=== PATIENT | female | born 1975 | race Two or more races ===

== ENCOUNTER 2023-05-16 11:50 | Emergency (ER) | payer BC ==
[~2023-05-16] VITALS: Ht 167.6 cm; Wt 54.4 kg
[2023-05-16 11:50] VITALS: BP 113/76; PULSE 83; RESP 18; TEMP 99; O2SAT 97
--- NOTE | 2023-05-16 11:50 | NUR ---
ARRIVAL PATIENT ARRIVED TO ED4 VIA GURNEY BY [facility], C/O SHORTNESS OF BREATH,WEAKNESS,DECREASED APPETITE AND NO SLEEPING FOR THE PAST 2 DAYS, PATIENT IS TRAVELING HOME TO [place] FROM [place] AFTER VISITING , HAS NOT SLEPT IN 2 DAYS, CALLED EMS NEAR [facility] FOR EVAL, EMS INITIATED A 20G TO THE RIGHT AC AND STARTED LACTATED RINGERS AT A WIDE OPEN RATE, BROUGHT TO THE ED FOR EVAL, ASSISTED TO ED NIESHA, VITAL SIGNS TAKEN AND DOCTOR NOTIFIED OF PATIENT'S ARRIVAL.
--- NOTE | 2023-05-16 12:25 | NUR ---
ORAL INTAKE JELLO AND APPLESAUCE PROVIDED TO PATIENT, TOLERATING WELL AT THIS TIME.
--- NOTE | 2023-05-16 12:26 | ER.PDOC ---
General Chief Complaint: Requesting Medical Care Stated Complaint: Weakness TRAVEL OUT OF US: No Time seen by MD: 12:08 Source: patient, family Exam Limitations: no limitations History of Present Illness Initial Comments 48 yo F denies particular medical problems or medical history other than smoking, anxiety/depression, and prior Caesarian section. Has has insomnia and weakness for the past 2-3 days, also poor po intake, while [place] with her three children ranging from adolescent to pre-K to visit her working in [place] (they live in [place]) and began this morning to have some bilateral leg and hand weakness - denying chest pain or hyperventilation/dyspnea at the time - which has since resolved. Stopped vehicle, called for EMS, comes in VSS with no obvious deficits. Timing/Duration: other (unclear) Severity: mild, moderate Associated Symptoms: malaise, weakness Allergies: Coded Allergies: No Known Allergies (Unverified , 05/16/23) Past Medical History Medical History: other (anxiety/depression) Family History Significant Family History: no pertinent family hx Social History Smoking: cigarettes Alcohol Use: rarely Drug Use: none Reviewed Nursing Reviewed: Vital Signs, Abn. Noted, Nursing Assessment Review of Systems Constitutional: malaise, weakness EENTM: no symptoms reported Respiratory: no symptoms reported; denies shortness of breath Cardiovascular: denies chest pain, denies palpitations, denies syncope Gastrointestinal: denies abdominal pain, denies diarrhea, denies nausea, denies vomiting; other (decreased appetite) Genitourinary: no symptoms reported Musculoskeletal: no symptoms reported Skin: no symptoms reported Psychiatric/Neurological: anxiety, depressed, tingling (or others) All Other Systems: Reviewed and Negative Physical Exam General Appearance: No Apparent Distress, Thin EENT: eyes nml inspection Neck: Supple Respiratory: normal breath sounds CVS: reg rate & rhythm Gastrointestinal: Normal Bowel Sounds, Non Tender Extremities: Normal Range of Motion, Non-Tender Neurologic/Psychiatric: No Motor/Sensory Deficits, Alert, Normal Mood/Affect, Oriented x 3 Skin: Normal Color Results/Orders Results/Orders Orders - KALEIGH LY MD Cbc With Auto Diff (05/16/23 12:08) Comprehensive Metabolic Panel (05/16/23 12:08) Urinalysis (05/16/23 12:08) PT (05/16/23 12:39) Partial Thromboplastin Time. (05/16/23 12:39) D-Dimer (05/16/23 12:39) Hcg Qualitative Serum (05/16/23 12:59) Urine Culture (05/16/23 12:45) Potassium Chloride (Klor-Con 10) (05/16/23 13:30) Sulfamethoxazole/Trimethoprim (Bactrim D (05/16/23 13:09) 0.9 % Sodium Chloride (Ns 1000ml) (05/16/23 13:10) Potassium Chloride (Klor-Con 10) (05/16/23 13:13) Sulfamethoxazole/Trimethoprim (Bactrim D (05/16/23 13:13) Vital Signs Date Time Temp Pulse Resp B/P (MAP) Pulse Ox O2 Delivery O2 Flow Rate FiO2 05/16/23 12:49 99.0 77 18 119/75 (90) 97 Room Air* 0 21 05/16/23 11:50 99.0 83 18 97 05/16/23 11:50 99.0 83 18 113/76 (88) 97 Room Air* 0 21 05/16/23 11:50 99.0 83 18 Laboratory Tests Test 05/16/23 12:19 05/16/23 12:45 White Blood Count 5.8 10^3/uL (4.5-11.0) Red Blood Count 4.50 10^6/uL (4.00-5.20) Hemoglobin 13.0 g/dL (12.0-15.0) Hematocrit 39.9 % (36.0-46.0) Mean Corpuscular Volume 88.7 fL (78-100) Mean Corpuscular Hemoglobin 28.9 pg (26-34) Mean Corpuscular Hemoglobin Concent 32.6 g/dL (33-36.5) L Red Cell Distribution Width 12.9 % (11.5-14.5) Platelet Count 248 10^3/uL (150-400) Mean Platelet Volume 10.0 fL (7.8-11.0) Neutrophils (%) (Auto) 68.9 % (41.0-85.0) Lymphocytes (%) (Auto) 22.8 % (24.0-44.0) L Monocytes (%) (Auto) 7.2 % (5.0-12.0) Neutrophils # (Auto) 4.0 10^3/uL (1.8-7.7) Lymphocytes # (Auto) 1.33 10^3/uL1 (1.0-4.8) Monocytes # (Auto) 0.4 10^3/uL (0.3-0.8) Absolute Immature Granulocyte (auto 0.01 10^3 u/L (0-2) Absolute Eosinophils (auto) 0.0 10^3/uL (0.0-0.2) Immature Granulocytes % 0.20 % (0.00-0.50) Eosinophils % 0.2 % (0.0-5.0) Basophils % 0.7 % (0.0-0.2) H Basophils # 0.0 10^3/uL (0.0-0.1) Prothrombin Time 10.6 SEC (9.7-11.6) INR 1.0 Activated Partial Thromboplast Time 25.0 SEC (22.5-33.1) D-Dimer 0.40 mg/L (0.19-0.49) Sodium Level 141 mmol/L (132-145) Potassium Level 3.2 mmol/L (3.6-5.2) L Chloride Level 102.0 mmol/L (96-109) Carbon Dioxide Level 26.4 mmol/L (20.0-32) Anion Gap 15.8 Blood Urea Nitrogen 4 mg/dL (7-18) L Creatinine 0.70 mg/dL (0.59-1.40) Estimated GFR () 109.0 (>/=60) Est GFR (CKD-EPI)(Non-Afr Nigerien) 90.1 (>/=60) BUN/Creatinine Ratio 5.0 (10.0-20.0) L Glucose Level 103 mg/dL (74-106) Calcium Level 9.1 mg/dL (8.4-10.5) Total Bilirubin 0.9 mg/dL (0.2-1.0) Aspartate Amino Transferase (AST) 15 U/L (0-35) Alanine Aminotransferase (ALT) 18 U/L (12-78) Alkaline Phosphatase 42 U/L (50-136) L Total Protein 7.1 g/dL (6.4-8.2) Albumin 4.0 g/dL (3.4-5.0) Globulin 3.1 Albumin/Globulin Ratio 1.290 Serum HCG, Qualitative NEGATIVE (NEGATIVE) Urine Collection Type RANDOM Urine Color YELLOW Urine Appearance Urine Bilirubin NEGATIVE (NEGATIVE) Urine Ketones 3+ (NEGATIVE) H Urine Specific [place] 1.010 (1.005-1.030) Urine pH 5.5 (4.5-8.0) Urine Protein NEGATIVE (NEGATIVE) Urine Urobilinogen 0.2 E.U./dL (0.2) Urine Nitrate POSITIVE (NEGATIVE) H Urine Leukocyte Esterase NEGATIVE (NEGATIVE) Urine Glucose (Auto)(UA) NEGATIVE (NEGATIVE) Urine Blood 2+ (NEGATIVE) H Urine RBC 2-5 RBC/HPF (NONE SEEN) Urine WBC 0-2 WBC/HPF (0-2) Urine Squamous Epithelial Cells FEW (<=FEW) Urine Bacteria MODERATE (NONE SEEN) H Urine Yeast RARE (NONE SEEN) Progress Progress MDM One wonders for an anxiety or hyperventilation episode. Abdominal exam is benign. We will screen with a d-dimer, check a UA, basic labs. K is a little low, making me wonder more about a hyperventilation episode. Looks like some dehydration, anxiety, and UTI. We will give fluids, antibiotics, and have recommended for outpatient followup. Pt has been in communication with her PCP as well and they will adjust her mirtazipine. ER DEPART Departure Time of Disposition: 13:18 Disposition: 01 HOME / SELF CARE / HOMELESS Impression: Primary Impression: Urinary tract infection Additional Impressions: Dehydration Anxiety Condition: Stable Patient Instructions: Anxiety and Panic Attacks, [id number], Dehydration, Adult, [id number], Urinary Tract Infection, [id number] Duration or Time Spent with Pa: 15 min Problem Qualifiers KALEIGH LY MD May 16, 2023 12:26
[2023-05-16 12:27] LABS: BASOPHIL % 0.7 % (0.0-0.2); EOSINOPHIL % 0.2 % (0.0-5.0); LYMPHOCYTES # 1.33 10^3/uL1 (1.0-4.8); LYMPHOCYTES % 22.8 % (24.0-44.0); MEAN CORP HGB 28.9 pg (26-34); MONOCYTES # 0.4 10^3/uL (0.3-0.8); MONOCYTES % 7.2 % (5.0-12.0); NEUTROPHILS % 68.9 % (41.0-85.0); PLATELET COUNT 248 10^3/uL (150-400); RED CELL DISTRIBUTION WIDTH 12.9 % (11.5-14.5)
[2023-05-16 12:42] LABS: CARBON DIOXIDE 26.4 mmol/L (20.0-32)
[2023-05-16 12:49] VITALS: BP 119/75; PULSE 77; RESP 18; TEMP 99; O2SAT 97
[2023-05-16 12:53] LABS: BILIRUBIN,URINE NEGATIVE (NEGATIVE); UROBILINOGEN,URINE 0.2 E.U./dL (0.2)
[2023-05-16 13:01] LABS: YEAST,URINE RARE (NONE SEEN)
[2023-05-16] MEDS ORDERED: BACTRIM DS PO STA (13:09)
[2023-05-16] MEDS ORDERED: NS 1000ML 1,000 ML STA (13:10)
[2023-05-16] MEDS ORDERED: BACTRIM DS ONE (13:13)
[2023-05-16] MEDS ORDERED: KLOR-CON 10 PO ONE (13:13)
[2023-05-16] MEDS ORDERED: NS 1000ML 1,000 ML ONE (13:16)
[2023-05-16] MEDS ORDERED: KLOR-CON 10 PO SCH (13:30)
[2023-05-16 13:31] VITALS: BP 104/69; PULSE 65; RESP 18; TEMP 99; O2SAT 97
== END 2023-05-16 14:50 | disposition home or self-care (01) ==
LOC: EDBD 11:50 → ER 11:50
DX: N39.0 Urinary tract infection, site not specified (principal); E86.0 Dehydration; F41.9 Anxiety disorder, unspecified; F17.210 Nicotine dependence, cigarettes, uncomplicated; Z98.890 Other specified postprocedural states
CPT/HCPCS: 99283; 96360; 87086; 80053; 85025; 36415; 85379; 81001; 85610; 85730; 87077; 84703; 87186; J7030; J3490